=== PATIENT | female | born 1980 | race Caucasian/White ===

== ENCOUNTER 2017-05-28 09:15 | Emergency (ER) | payer BC ==
[2017-05-28 09:19] VITALS: BP 159/82; PULSE 89; TEMP 97.3; BMI 33.6
--- NOTE | 2017-05-28 09:27 | PDOC ---
History of Present Illness - General Stated Complaint: LEFT LEG PAIN, SWELLING Time Seen by Provider: 05/28/17 09:16 History Source: Patient Exam Limitations: No Limitations - History of Present Illness Initial Comments: 05/28/17 09:23 37 y/o female with left leg swelling and pain since yesterday. Has been moving a lot, but no fall or trauma. Took Aleve for the pain. Denies BCP, SOB, traveling long distance or chest pain. No coldness or numbness to leg. No fever or chills. Never had this problem before. Past History - Past Medical History Allergies/Adverse Reactions: Allergies Allergy/AdvReac Type Severity Reaction Status Date / Time ibuprofen Allergy Hives Verified 05/28/17 10:29 Home Medications: Ambulatory Orders Cyclobenzaprine HCl 10 mg PO TID #9 tablet 05/28/17 COPD: No Other medical history: PT DENIES - Suicide/Smoking/Psychosocial Hx Smoking History: Current every day smoker Have you smoked in the past 12 months: Yes Number of Cigarettes Smoked Daily: 6 Information on smoking cessation initiated: Yes 'Breaking Loose' booklet given: 05/28/17 Hx Alcohol Use: (weekly) Review of Systems - Review of Systems Able to Perform ROS?: Yes Is the patient limited Irish proficient: No Constitutional: No: Chills, Fever Respiratory: No: Cough, Shortness of Breath Cardiac (ROS): No: Chest Pain Musculoskeletal: Yes: Joint Swelling. No: Muscle Weakness, Joint Stiffness (d) Integumentary: No: Bruising, Erythema All Other Systems: Reviewed and Negative *Physical Exam - Vital Signs Last Vital Signs Temp Pulse Resp BP Pulse Ox 97.3 F L 89 18 159/82 97 05/28/17 09:15 05/28/17 09:15 05/28/17 09:15 05/28/17 09:15 05/28/17 09:15 - Physical Exam General Appearance: Yes: Nourished, Appropriately Dressed. No: Apparent Distress HEENT: positive: EOMI, CASSIUS, Normal ENT Inspection, Normal Voice, Pharynx Normal Neck: positive: Trachea midline, Normal Thyroid, Supple. negative: Tender, Rigid, Carotid bruit Respiratory/Chest: positive: Lungs Clear, Normal Breath Sounds. negative: Chest Tender, Respiratory Distress Cardiovascular: positive: Regular Rhythm, Regular Rate, S1, S2. negative: Edema , JVD, Murmur Vascular Pulses: Femoral (R): 4+, Femoral (L): 4+, Carotid (R): 4+, Carotid (L) : 4+, Dorsalis-Pedis (R): 4+, Doralis-Pedis (L): 4+ Gastrointestinal/Abdominal: positive: Normal Bowel Sounds, Flat, Soft. negative : Organomegaly Lymphatic: negative: Adenopathy, Tenderness, Other Musculoskeletal: positive: Normal Inspection, Other. negative: CVA Tenderness Extremity: positive: Normal Capillary Refill, Normal Range of Motion, Tender ( tender to left popliteal area with fullness), Swelling, Other (left leg shows no disoloration or cyanosis, no compartment syndrome). 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 05/28/17 10:41 US left leg: No DVT Ice, elevate, rest Flexeril 10 mg 3x/day as needed If worsen return to ER - RADIOLOGY Radiology Studies Ordered: Category Date Time Status DUPLEX VASCUL US-1 LEG [US] Stat Ultrasound 05/28/17 09:21 Ordered *DC/Admit/Observation/Transfer Diagnosis at time of Disposition: Left leg swelling - Discharge Dispostion Disposition: HOME Condition at time of disposition: Stable Admit: No - Referrals - Patient Instructions Printed Discharge Instructions: DI for Leg Pain Additional Instructions: Ice, Tylenol, rest Flexeril 10 mg 3x/day as needed If worsen return to ER - Post Discharge Activity Forms/Work/School Notes: Back to Work
== END 2017-05-28 10:50 | disposition home or self-care (01) ==
LOC: FER 09:15
DX: M79.89 Other specified soft tissue disorders (principal); F17.210 Nicotine dependence, cigarettes, uncomplicated
CPT/HCPCS: 93971-TC; 99283-25

== ENCOUNTER 2017-07-15 20:54 | Emergency (ER) | payer BC ==
--- NOTE | 2017-07-15 21:08 | PDOC ---
Rapid Medical Evaluation Time Seen by Provider: 07/15/17 21:07 Medical Evaluation: Allergies Allergy/AdvReac Type Severity Reaction Status Date / Time ibuprofen Allergy Hives Verified 05/28/17 10:29 07/15/17 21:07 I have performed a brief in-person evaluation of this patient. The patient presents with a chief complaint of: , 6 wk , vag bleeding, cramping, LMP "may" Pertinent physical exam findings: well appearing I have ordered the following: labs,tvus The patient will proceed to the ED for further evaluation. Discharge Disposition - Diagnosis Vaginal bleeding during - Referrals - Patient Instructions - Post Discharge Activity
[2017-07-15 21:10] VITALS: BP 136/85; TEMP 98; BMI 34.3
[2017-07-15] MEDS ORDERED: ACETAMINOPHEN 325 MG TABLET (FP) PO ONE (22:39)
--- NOTE | 2017-07-15 22:39 | PDOC ---
History of Present Illness - General Chief Complaint: Vaginal Bleeding Stated Complaint: VAGINAL BLEEDING (6WKS ) Time Seen by Provider: 07/15/17 21:07 History Source: Patient - History of Present Illness Initial Comments: 07/15/17 23:20 37-year-old female complaining of pelvic pain and vaginal bleeding with clots. Patient reports that she had 3 positive urine is at home. Her last menstrual period was May 2017. Patient denies any past medical history. Patient reports that symptoms have not subsided. Past History - Past Medical History Allergies/Adverse Reactions: Allergies Allergy/AdvReac Type Severity Reaction Status Date / Time ibuprofen Allergy Hives Verified 07/15/17 21:08 Home Medications: Ambulatory Orders NK [No Known Home Medication] 07/15/17 COPD: No - Suicide/Smoking/Psychosocial Hx Smoking History: Never smoked Have you smoked in the past 12 months: No Number of Cigarettes Smoked Daily: 6 Information on smoking cessation initiated: No 'Breaking Loose' booklet given: 05/28/17 Hx Alcohol Use: No Drug/Substance Use Hx: No *Physical Exam - Vital Signs Last Vital Signs Temp Pulse Resp BP Pulse Ox 98.0 F 16 136/85 100 07/15/17 21:08 07/15/17 21:08 07/15/17 21:08 07/15/17 21:08 - Physical Exam General Appearance: Yes: Appropriately Dressed Cardiovascular: positive: Regular Rhythm, Regular Rate Female Pelvic Exam: positive: normal external exam, cervical os closed, other ( small amount of clots in vaginal vault, suprapubic tenderness). negative: adnexal tenderness Gastrointestinal/Abdominal: positive: Normal Bowel Sounds, Soft (by) Extremity: positive: Normal Capillary Refill, Normal Inspection, Normal Range of Motion Integumentary: positive: Normal Color, Dry, Warm ED Treatment Course - LABORATORY CBC & Chemistry Diagram: 07/15/17 22:30 07/15/17 22:30 - RADIOLOGY Radiograph Interpretation: 07/15/17 23:29 TVUS: Thickened and heterogeneous endometrium without evidence of viable gestation. Clinical and laboratory correlation and follow-up ultrasound recommended Progress Note - Progress Note Progress Note: A: vaginal bleeding in P; cbc beta hcg ua *DC/Admit/Observation/Transfer Diagnosis at time of Disposition: Vaginal bleeding during - Discharge Dispostion Disposition: HOME - Referrals - Patient Instructions Printed Discharge Instructions: Vaginal Bleeding During Additional Instructions: Follow-up with your doctor in 2 days for repeat beta hCG level and an ultrasound if indicated. Drink plenty of fluids Return to the emergency room if you are soaking 2 pads in an hour, severe abdominal pain, - Post Discharge Activity Forms/Work/School Notes: Back to Work
[2017-07-15 22:51] LABS: BASO % 0.5 % (0-2.0); EOS % 0.9 % (0-4.5); HEMATOCRIT 36.8 % (32.4-45.2); HEMOGLOBIN 12.4 GM/dL (10.7-15.3); MCH 28.5 pg (25.7-33.7); MCHC 33.6 g/dl (32.0-36.0); MEAN CELL VOLUME 84.7 fl (80-96); MEAN PLT VOLUME 6.6 fl (7.5-11.1); MONO % 8.3 % (3.8-10.2); NEUT % 64.3 % (42.8-82.8); PLATELET COUNT 371 K/MM3 (134-434); RBC 4.34 M/mm3 (3.60-5.2); WHITE BLOOD COUNT 11.4 K/mm3 (4.0-10.0)
--- NOTE | 2017-07-15 22:51 | PDOC ---
*Physical Exam - Vital Signs Last Vital Signs Temp Pulse Resp BP Pulse Ox 98.0 F 16 136/85 100 07/15/17 21:08 07/15/17 21:08 07/15/17 21:08 07/15/17 21:08 ED Treatment Course - LABORATORY CBC & Chemistry Diagram: 07/15/17 22:30 07/15/17 22:30 Medical Decision Making - Medical Decision Making 07/15/17 22:51 agree with care from STARLA Wilcox *DC/Admit/Observation/Transfer Diagnosis at time of Disposition: Vaginal bleeding during - Referrals - Patient Instructions - Post Discharge Activity
[2017-07-15 23:13] LABS: URINE APPEARANCE CLEAR; URINE BILIRUBIN NEGATIVE (<2.0 mg/dL); URINE BLOOD 2+ (NEGATIVE); URINE COLOR LTYELLOW; URINE GLUCOSE (UA) NEGATIVE (NEGATIVE); URINE KETONE NEGATIVE (NEGATIVE); URINE LEUK ESTERASE NEGATIVE (NEGATIVE); URINE NITRITE NEGATIVE (NEGATIVE); URINE PROTEIN NEGATIVE (NEGATIVE); URINE UROBILINOGEN NEGATIVE mg/dL (0.2-1.0)
[2017-07-15 23:14] LABS: ALBUMIN 3.5 g/dl (3.4-5.0); ANION GAP 7 (8-16); BILIRUBIN,TOTAL 0.1 mg/dL (0.2-1.0); BLOOD UREA NITROGEN 16 mg/dL (7-18); CALCIUM 8.8 mg/dL (8.5-10.1); CHLORIDE 107 mmol/L (98-107); CO2 26 mmol/L (21-32); CREATININE 0.6 mg/dL (0.55-1.02); GLUCOSE,RANDOM 90 mg/dL (74-106); POTASSIUM 4.8 mmol/L (3.5-5.1); SGOT/AST 10 U/L (15-37); SGPT/ALT 21 U/L (12-78); SODIUM 140 mmol/L (136-145); TOT PROT 6.9 g/dl (6.4-8.2)
[2017-07-15 23:17] LABS: EPI CELLS RARE /HPF (FEW); URINE MUCUS FEW
[2017-07-15 23:17] LABS: ALK PHOS 65 U/L (45-117)
== END 2017-07-16 00:22 | disposition home or self-care (01) ==
LOC: JER 20:54
DX: O26.891 Other specified pregnancy related conditions, first trimester (principal); O20.8 Other hemorrhage in early pregnancy; Z3A.01 Less than 8 weeks gestation of pregnancy
CPT/HCPCS: 36415; 76817-TC; 80053; 81003; 81015; 84702; 85025; 86850; 86900; 86901; 99282-25